=== PATIENT | female | born 1985 | race Caucasian/White ===

== ENCOUNTER 2017-09-09 07:42 | Outpatient (CLI) | payer SELFPAY | END 2017-09-09 07:43 | disposition home or self-care (01) | LOC: LAB 07:42 | DX: Z01.89 Encounter for other specified special examinations (principal) | CPT/HCPCS: 36415 ==

== ENCOUNTER 2017-11-30 08:34 | Outpatient (CLI) | payer BC | END 2017-11-30 08:35 | disposition home or self-care (01) | LOC: LAB 08:34 | PROVIDERS: ATTEND Obstetrics & Gynecology Reproductive Endocrinology | DX: O09.01 Supervision of pregnancy with history of infertility, first trimester (principal) | CPT/HCPCS: 36415; 84702; 86900; 86901 ==

== ENCOUNTER 2017-12-02 07:19 | Outpatient (CLI) | payer BC | END 2017-12-02 07:20 | disposition home or self-care (01) | LOC: LAB 07:19 | PROVIDERS: ATTEND Obstetrics & Gynecology Reproductive Endocrinology | DX: O09.01 Supervision of pregnancy with history of infertility, first trimester (principal) | CPT/HCPCS: 36415; 84702 ==

== ENCOUNTER 2017-12-26 11:20 | Outpatient (CLI) | payer BC ==
--- NOTE | 2017-12-26 14:15 | Ultrasound Report ---
Procedure Date: 12/26/2017 Accession Number: [id number] / [id number] Procedure: US - OB First Trimester CPT Code: FULL RESULT: EXAM: FIRST TRIMESTER OBSTETRIC ULTRASOUND (Less than 11 weeks) EXAM DATE: 12/26/2017 01:01 PM. CLINICAL HISTORY: Missed SAB. LMP: Unknown. COMPARISONS: None. TECHNIQUE: Transvaginal imaging only. Ultrasound examination with static image documentation. CLINICAL DATES: IVF performed 11/13/2017 corresponding to an estimated gestational age of 8 weeks and 0 days. ASSESSMENT: Gestational Sac: Single intrauterine. Mean gestational sac diameter: 24 mm = 7 weeks 2 days. Embryo: CRL (crown-rump length) 5 mm = 6 weeks 3 days. Cardiac activity: None is detected. Yolk sac: 3.6 mm. Amniotic fluid: Not accurately assessed at this gestational age. Early placenta: Not visible at this gestational age. Other: No perigestational fluid collection demonstrated. MATERNAL STRUCTURES: Uterus: Anteverted. Unremarkable. Cervix: Closed. Right Ovary/Adnexa: The right ovary contains a 1.5 x 0.8 x 1.3 cm and a 1.0 x 0.5 x 1.0 follicle. The ovary measures 4.0 x 2.5 x 2.4 cm, volume 12.5 cc. Left Ovary/Adnexa: The left ovary contains a corpus luteum which measures up to 1.1 cm as well as 4 additional follicles ranging in size from 0.3 cm to 0.8 cm. The ovary measures 3.4 x 2.9 x 3.6 cm, volume 18.5 cc. Free Fluid: A small amount of free fluid is seen in the pelvis. Other: None. IMPRESSION: Single intrauterine gestation with no heart rate detected. This is compatible with but not diagnostic of the provided history. Follicles described above. RADIA
== END 2017-12-26 11:21 | disposition home or self-care (01) ==
LOC: DI 11:20
PROVIDERS: ATTEND Obstetrics & Gynecology Reproductive Endocrinology
DX: O02.1 Missed abortion (principal)
CPT/HCPCS: 76801

== ENCOUNTER 2018-03-27 12:37 | Outpatient (CLI) | payer BC | END 2018-03-27 12:38 | disposition home or self-care (01) | LOC: LAB 12:37 | PROVIDERS: ATTEND Obstetrics & Gynecology Reproductive Endocrinology | DX: O20.0 Threatened abortion (principal); O02.1 Missed abortion; Z31.49 Encounter for other procreative investigation and testing; Z31.430 Encounter of female for testing for genetic disease carrier status for procreative management; Z31.83 Encounter for assisted reproductive fertility procedure cycle; Z32.00 Encounter for pregnancy test, result unknown; N97.9 Female infertility, unspecified; Z91.19 Patient's noncompliance with other medical treatment and regimen | CPT/HCPCS: 36415; 84702 ==

== ENCOUNTER 2018-03-29 12:12 | Outpatient (CLI) | payer BC | END 2018-03-29 12:13 | disposition home or self-care (01) | LOC: LAB 12:12 | PROVIDERS: ATTEND Obstetrics & Gynecology Reproductive Endocrinology | DX: O20.0 Threatened abortion (principal); O02.1 Missed abortion; N97.9 Female infertility, unspecified; Z91.19 Patient's noncompliance with other medical treatment and regimen; Z31.49 Encounter for other procreative investigation and testing; Z31.430 Encounter of female for testing for genetic disease carrier status for procreative management; Z31.83 Encounter for assisted reproductive fertility procedure cycle; Z31.89 Encounter for other procreative management; Z32.00 Encounter for pregnancy test, result unknown | CPT/HCPCS: 36415; 84702 ==

== ENCOUNTER 2020-02-06 09:39 | Outpatient (CLI) | payer BC | END 2020-02-06 09:40 | disposition home or self-care (01) | LOC: LAB 09:39 | PROVIDERS: ATTEND Obstetrics & Gynecology | DX: O20.9 Hemorrhage in early pregnancy, unspecified (principal) | CPT/HCPCS: 36415; 84702 ==

== ENCOUNTER 2020-09-15 16:50 | Outpatient (CLI) | payer BC ==
--- NOTE | 2020-09-15 17:17 | XRAY Report ---
PROCEDURE: Foot 3 View RT INDICATIONS: PAIN AND EDIMA, RIGHT FOOT TECHNIQUE: 3 views of the foot were acquired. COMPARISON: None FINDINGS: Bones: No fractures or dislocations. Well-defined plantar calcaneal enthesophyte is seen. No suspici ous bony lesions. Soft tissues: No tibiotalar joint effusion. Achilles tendon appears normal. IMPRESSION: No right foot fracture or dislocation. Well-defined plantar calcaneal enthesophyte. Reviewed by: Steve Becerril MD on 09/15/2020 5:16 PM PDT Approved by: Steve Becerril MD on 09/15/2020 5:16 PM PDT Station ID: [id number]
== END 2020-09-15 16:51 | disposition home or self-care (01) ==
LOC: DI 16:50
PROVIDERS: ATTEND Podiatrist
DX: M77.31 Calcaneal spur, right foot (principal)

== ENCOUNTER 2020-09-30 07:57 | Outpatient (CLI) | payer BC ==
--- NOTE | 2020-09-30 10:49 | MRI Report ---
PROCEDURE: Foot RT W/O INDICATIONS: PAIN AND SWELLING X 7 WEEKS TECHNIQUE: Noncontrast coronal and sagittal T1 spin echo and STIR; axial T1 spin echo and T2 fast spin echo with fat saturation through the right foot. COMPARISON: None. FINDINGS: Image quality: Excellent. Bones: The visualized bone marrow demonstrates normal signal on all sequences. The overlying cortex appears intact. No fractures lines or intra-osseous lesions. The hallux sesamoids appear grossly u nremarkable. Soft tissues: Prominent bursal fluid between the first and second metatarsal heads in keeping with bu rsitis. Subcutaneous soft tissue edema adjacent to the fifth metatarsal head, technically nonspecific etiology. Subtle T2 hyperintensity involving the abductor digiti minimi muscle raising possibility o f low-grade strain, or chronic overuse. IMPRESSION: Minimal muscle edema involving the abductor digit minimi raising possibility of low-grade acute strai n versus chronic overuse.Mild adjacent subcutaneous soft tissue swelling. First-second intermetatarsal bursitis. No evidence of occult fracture. Reviewed by: Fernie Stack MD on 09/30/2020 10:48 AM PDT Approved by: Fernie Stack MD on 09/30/2020 10:48 AM PDT Station ID: [id number]
== END 2020-09-30 07:58 | disposition home or self-care (01) ==
LOC: DI 07:57
PROVIDERS: ATTEND Podiatrist
DX: M79.671 Pain in right foot (principal); M79.89 Other specified soft tissue disorders; M77.51 Other enthesopathy of right foot and ankle